=== PATIENT | male | born 1990 ===

== ENCOUNTER 2018-05-12 13:58 | Emergency (ER) | payer SELFPAY ==
[2018-05-12 14:11] VITALS: RESP 18; TEMP 98.6; O2SAT 100
[2018-05-12] MEDS ORDERED: Sodium Chloride 0.9% 1,000 ML IV ONE (14:22)
--- NOTE | 2018-05-12 14:25 | ED PDOC ---
HPI: Chest Pain Time Seen by Provider: 05/12/18 14:21 Chief Complaint (Nursing): Chest Pain Chief Complaint (Provider): Cough History/Exam Limitations: no limitations Current Symptoms Are (Timing): Better Past Medical History Reviewed: Historical Data, Nursing Documentation, Vital Signs Vital Signs: Last Vital Signs Temp 98.6 F 05/12/18 14:07 Pulse 92 H 05/12/18 14:20 Resp 18 05/12/18 14:07 BP 149/93 H 05/12/18 14:20 Pulse Ox 100 05/12/18 14:17 - Medical History PMH: HTN (does not take medication) - Family History Family History: States: Unknown Family Hx - Allergies Allergies/Adverse Reactions: Allergies Allergy/AdvReac Type Severity Reaction Status Date / Time No Known Allergies Allergy Verified 05/12/18 14:11 JAYCE Risk Score for UA/NSTEMI - JAYCE Risk Score Age > 64: NO 3 or more CAD Risk Factors: NO Known CAD (Stenosis greater than 50%): NO Aspirin use in past 7 days: NO Severe Angina: NO EKG ST changes greater than 0.5mm: NO Positive Cardiac Marker: NO JAYCE Score: 0 Risk %: 5% Review of Systems ROS Statement: Except As Marked, All Systems Reviewed And Found Negative Respiratory: Positive for: Cough. Negative for: Wheezing Physical Exam - Reviewed Nursing Documentation Reviewed: Yes - Physical Exam Skin: Positive for: Normal Color, Warm, Dry. Negative for: Diaphoresis, Pallor, Rash Eye Exam: Positive for: Normal appearance. Negative for: Nystagmus, Periorbital swelling, Periorbital tenderness ENT: Positive for: Normal ENT Inspection. Negative for: Nasal Congestion, Pharyngeal Erythema, Tonsillar Exudate, Tonsillar Swelling Neck: Positive for: Normal, Supple Cardiovascular/Chest: Positive for: Regular Rate, Rhythm Respiratory: Positive for: Normal Breath Sounds Pulses-Carotid (L): 2+ Pulses-Carotid (R): 2+ Pulses-Radial (L): 2+ Pulses-Radial (R): 2+ - Laboratory Results Result Diagrams: 05/12/18 14:40 05/12/18 14:40 - ECG O2 Sat by Pulse Oximetry: 100 Disposition - Clinical Impression Clinical Impression: Atypical chest pain, Viral illness - Disposition Referrals: [facility] [Outside] Disposition: Routine/Home Disposition Time: 14:10 Condition: STABLE Instructions: Chest Pain That Is Not Caused by the Heart (DC) Forms: [employer] (Albanian), [employer] (Syrian) Print Language: [place]CI[place]
[2018-05-12 14:52] LABS: BASO % 0.6 % (0.0-2.0); EOS # 0.1 K/uL (0.0-0.7); EOS % 1.1 % (0.0-4.0); HEMOGLOBIN 15.7 g/dL (12.0-18.0); LYMPH # 1.7 K/uL (1.0-4.3); LYMPH % 25.1 % (20.0-40.0); MEAN CELL VOLUME 90.7 fl (80.0-94.0); MEAN CORPUSCULAR HEMOGLOBIN 31.2 pg (27.0-31.0); MEAN CORPUSCULAR HGB CONC 34.4 g/dL (33.0-37.0); MEAN PLATELET VOLUME 9.5 fl (7.2-11.7); MONO # 0.8 K/uL (0.0-0.8); MONO % 12.1 % (0.0-10.0); NEUT % 61.1 % (50.0-75.0); NRBC % 0.1 % (0.0-0.0); RBC 5.04 Mil/uL (4.40-5.90); RED CELL DISTRIBUTION WIDTH 13.2 % (11.5-14.5); WHITE BLOOD COUNT 6.6 K/uL (4.8-10.8)
--- NOTE | 2018-05-12 14:53 | RAD ---
Date of service: 05/12/2018 HISTORY: CP COMPARISON: No prior. TECHNIQUE: Chest PA and lateral FINDINGS: LUNGS: No active pulmonary disease. PLEURA: No significant pleural effusion identified. No pneumothorax apparent. CARDIOVASCULAR: No aortic atherosclerotic calcification present. Normal cardiac size. No pulmonary vascular congestion. OSSEOUS STRUCTURES: No significant abnormalities. VISUALIZED UPPER ABDOMEN: Normal. OTHER FINDINGS: None. IMPRESSION: No active disease.
[2018-05-12 14:55] LABS: URINE BILIRUBIN NEGATIVE (NEGATIVE); URINE BLOOD NEGATIVE (NEGATIVE); URINE CLARITY CLEAR (Clear); URINE COLOR STRAW (YELLOW); URINE GLUCOSE (UA) NEG (NEGATIVE); URINE LEUKOCYTE ESTERASE NEG Leu/uL (Negative); URINE PROTEIN NEGATIVE (NEGATIVE); URINE UROBILINOGEN 0.2-1.0 mg/dL (0.2-1.0)
[2018-05-12 15:07] LABS: ALB/GLOB RATIO 1.2 (1.0-2.1); ALBUMIN 4.6 g/dL (3.5-5.0); ALT/SGPT 63 U/L (21-72); AST/SGOT 62 U/L (17-59); BLOOD UREA NITROGEN 12 mg/dl (9-20); CALCIUM 10.2 mg/dL (8.4-10.2); GFR NON-AFRICAN AMERICAN > 60; PROTHROMBIN TIME 11.4 Seconds (9.8-13.1)
[2018-05-12 15:10] LABS: PARTIAL THROMBOPLASTIN TIME 33.2 Seconds (25.6-37.1)
[2018-05-12 18:10] VITALS: BP 135/88; PULSE 84
--- NOTE | 2018-05-13 09:13 | CARD ---
APPROVED REPORT Date of service: 05/12/2018 EKG Measurement Heart [id number] CO [id number] <Conclusion> Normal sinus rhythm Normal ECG
== END 2018-05-12 17:17 | disposition home or self-care (01) ==
LOC: H.ER 13:58
DX: R07.89 Other chest pain (principal); B34.9 Viral infection, unspecified; I10 Essential (primary) hypertension
CPT/HCPCS: 71046; 80053; 81003; 84484; 85025; 85610; 85730; 87070; 87430; 87804; 93005; 96360; 99284; J7030